=== PATIENT | female | born 1980 | race Caucasian/White ===

== ENCOUNTER 2017-01-04 09:45 | Outpatient (CLI) | payer OTHER ==
[~2017-01-04 09:45] MED LIST: EPIPEN 2-PAK0.3 MG IM; FLOVENT HFA220 MCG INH; ONDANSETRON ODT4 MG PO; ORTHO NOVUM PO; ORTHO-NOVUM 1/31 TAB PO; PERCOCET1 TA1 PO; PREDNISONE10 MG PO; PROAIR HFA IN; SENNA-TABS8.6 MG PO; TOPAMAX100 MG PO; TYLENOL325 MG PO; ZYRTEC ALLERGY10 MG PO
--- NOTE | 2017-01-04 10:23 | DIAGNOSTIC IMAGING REPORT ---
PROCEDURE: CT HEAD WITHOUT CONTRAST INDICATION: BONY MASS LEFT PARITAL FRONTAL REGION TECHNIQUE: Axial CT images were acquired through the head. Coronal and sagittal reformations were created. COMPARISON: None. FINDINGS: No intracranial hemorrhage or extraaxial fluid collections. Ventricles are normal in size, shape and position. There is no mass, mass effect or midline shift. The harvey-white matter differentiation is normal. There is no edema. There is a small osteochondroma on the left parietal bone. IMPRESSION: 1. No CT evidence of acute intracranial process. 2. small osteochondroma left parietal bone All CT scans at this facility use dose modulation, iterative reconstruction, and/or weight-based dosing when appropriate to reduce radiation dose to as low as reasonably achievable.
== END 2017-01-05 15:47 | disposition home or self-care (01) ==
LOC: CT SRH 09:45
DX: D16.4 Benign neoplasm of bones of skull and face (principal)